=== PATIENT | female | born 1945 | race Hispanic/Latino ===

== ENCOUNTER 2017-03-06 22:13 | Emergency (ER) | payer OTHER ==
[~2017-03-06 22:13] MED LIST: ASCO500T9 PO; CRANBERRY PO; LISI1TAB9 PO; OMEP40CA37 PO; PRAV20TA4 PO; RENA VITE PO; TEMA30CA PO; TIZA2CAP9 PO; TRAM50TA4 PO; VITAMIN D PO; atenolol PO; oxybutynin PO
[2017-03-06 22:42] LABS: BASOPHILS % (AUTO) 0.5 % (0.0-5.0); EOSINOPHILS % (AUTO) 4.5 % (0.0-8.0); HEMATOCRIT 40.8 % (36-48); MEAN CORPUSCULAR HGB CONC 34.5 g/dL (32.0-36.0); MEAN CORPUSCULAR VOLUME 86.8 fL (79-99); MONOCYTES % (AUTO) 8.3 % (3.0-13.0); NEUTROPHILS % (AUTO) 54.7 % (40.0-77.0); PLATELET COUNT (AUTO) 200 K/uL (130-400); RED CELL DISTRIBUTION WIDTH 13.3 % (11.0-15.5); WHITE BLOOD COUNT (AUTO) 8.2 K/uL (4.8-10.8)
[2017-03-06 22:56] LABS: CREATININE 1.2 mg/dL (0.5-1.5); POTASSIUM 3.6 mmol/L (3.5-5.1)
[2017-03-06 23:00] LABS: ALBUMIN 3.5 g/dL (3.5-5.0); BILIRUBIN,DIRECT 0.1 mg/dL (0.0-0.3); BILIRUBIN,TOTAL 0.3 mg/dL (0.2-1.0); TOTAL PROTEIN, SERUM 7.1 g/dL (6.0-8.3)
[2017-03-06 23:06] LABS: B-TYPE NATRIURETIC PEPTIDE 94 pg/mL (0-100)
[2017-03-06] MEDS ORDERED: ONDANSETRON HCL 4 MG/2 ML VIAL ONE (23:38)
[2017-03-06] MEDS ORDERED: SODIUM CHLORIDE 0.9% 500ML 500 ML IV ONE (23:38)
[2017-03-06] MEDS ORDERED: MECLIZINE HCL 25 MG TABLET ONE (23:38)
== END 2017-03-07 00:57 | disposition home or self-care (01) ==
LOC: EDH 22:13
DX: R42 Dizziness and giddiness (principal); R53.1 Weakness; E78.5 Hyperlipidemia, unspecified; I10 Essential (primary) hypertension; M19.90 Unspecified osteoarthritis, unspecified site; I25.10 Atherosclerotic heart disease of native coronary artery without angina pectoris; Z88.6 Allergy status to analgesic agent
CPT/HCPCS: 36415; 70450; 80048; 80076; 82550; 83880; 84484; 85025; 93005; 96374; 99285; J2405; J7040

== ENCOUNTER → 2017-03-19 | Outpatient (CLI) | payer OTHER ==
[~2017-03-19] MED LIST changes: +ATEN25TA PO; +COMB5OS OU; +DOXY100C2 PO; +NITR100C PO; +REGADENOSON 0.4 MG/5 ML PF SYG IVP SCH
== END | disposition home or self-care (01) ==
LOC: SHCH 09:13
PROVIDERS: ATTEND Internal Medicine Cardiovascular Disease
DX: I25.119 Atherosclerotic heart disease of native coronary artery with unspecified angina pectoris (principal)
CPT/HCPCS: 78452; 93017; 96374; A9500 ×2; J2785

== ENCOUNTER 2017-06-17 10:15 | Emergency (ER) | payer OTHER ==
[~2017-06-17 10:15] MED LIST changes: -ATEN25TA PO; -COMB5OS OU; -DOXY100C2 PO; -NITR100C PO; -REGADENOSON 0.4 MG/5 ML PF SYG IVP SCH
[2017-06-17] MEDS ORDERED: SODIUM CHLORIDE 0.9% 1000ML 1,000 ML IV ONE (11:22)
[2017-06-17] MEDS ORDERED: ONDANSETRON HCL MDV 20ML 2 MG/ML VIAL ONE (11:22)
[2017-06-17] MEDS ORDERED: CEFTRIAXONE SODIUM 1 GM ONE (11:23)
[2017-06-17] MEDS ORDERED: KETOROLAC TROMETHAMINE 30MG/ML ONE (11:23)
[2017-06-17 12:00] LABS: BASOPHILS % (AUTO) 0.2 % (0.0-5.0); EOSINOPHILS % (AUTO) 0.2 % (0.0-8.0); HEMATOCRIT 42.7 % (36-48); LYMPHOCYTES % (AUTO) 7.2 % (21.0-51.0); MEAN CORPUSCULAR HEMOGLOBIN 30.1 pg (27.0-33.0); MEAN CORPUSCULAR HGB CONC 34.1 g/dL (32.0-36.0); MEAN CORPUSCULAR VOLUME 88.2 fL (79-99); NEUTROPHILS % (AUTO) 85.4 % (40.0-77.0); PLATELET COUNT (AUTO) 172 K/uL (130-400); RED BLOOD CELL COUNT(AUTO) 4.84 MIL/uL (4.00-5.50); RED CELL DISTRIBUTION WIDTH 13.9 % (11.0-15.5); WHITE BLOOD COUNT (AUTO) 5.9 K/uL (4.8-10.8)
[2017-06-17 12:04] LABS: APPEARANCE,URINE Clear (CLEAR); BILIRUBIN,URINE Negative (NEGATIVE); COLOR,URINE Yellow (YELLOW); GLUCOSE, URINE (UA) Negative (NEGATIVE); KETONES,URINE Negative (NEGATIVE); LEUKOCYTE ESTERASE ,URINE Moderate (NEGATIVE); NITRATE,URINE Negative (NEGATIVE); OCCULT BLOOD,URINE Moderate (NEGATIVE); PROTEIN,URINE Trace (NEGATIVE)
[2017-06-17 12:14] LABS: BACTERIA,URINE Rare /HPF (None Seen); RBC,URINE 0-1 /HPF (0-1); SQUAMOUS EPITHELIAL CELL,UR Rare /HPF (0-2)
[2017-06-17 12:22] LABS: CREATININE 1.5 mg/dL (0.5-1.5); POTASSIUM 3.9 mmol/L (3.5-5.1)
[2017-06-17 12:24] LABS: ALBUMIN 2.9 g/dL (3.5-5.0); BILIRUBIN,TOTAL 0.5 mg/dL (0.2-1.0); TOTAL PROTEIN, SERUM 7.2 g/dL (6.0-8.3)
[2017-06-17] MEDS ORDERED: LEVOFLOXACIN 500 MG TABLET ONE (13:03)
== END 2017-06-17 13:14 | disposition home or self-care (01) ==
LOC: EDH 10:15
DX: N39.0 Urinary tract infection, site not specified (principal); I25.10 Atherosclerotic heart disease of native coronary artery without angina pectoris; E78.5 Hyperlipidemia, unspecified; I10 Essential (primary) hypertension; Z87.891 Personal history of nicotine dependence; Z88.6 Allergy status to analgesic agent
CPT/HCPCS: 36415; 80053; 81001; 85025; 87088; 96361; 96374; 96375; 99285; J0696; J1885; J7030

== ENCOUNTER 2017-06-19 09:16 | Observation (INO) | payer OTHER ==
[~2017-06-19] VITALS: Ht 172.7 cm; Wt 75.7 kg
[2017-06-19 10:13] LABS: BASOPHILS % (AUTO) 1.5 % (0.0-5.0); EOSINOPHILS % (AUTO) 1.2 % (0.0-8.0); HEMATOCRIT 42.7 % (36-48); LYMPHOCYTES % (AUTO) 21.6 % (21.0-51.0); MEAN CORPUSCULAR HEMOGLOBIN 29.8 pg (27.0-33.0); MEAN CORPUSCULAR HGB CONC 34.4 g/dL (32.0-36.0); MEAN CORPUSCULAR VOLUME 86.5 fL (79-99); NEUTROPHILS % (AUTO) 64.7 % (40.0-77.0); PLATELET COUNT (AUTO) 183 K/uL (130-400); RED BLOOD CELL COUNT(AUTO) 4.93 MIL/uL (4.00-5.50); RED CELL DISTRIBUTION WIDTH 13.5 % (11.0-15.5); WHITE BLOOD COUNT (AUTO) 5.5 K/uL (4.8-10.8)
[2017-06-19 10:22] LABS: CREATININE 1.5 mg/dL (0.5-1.5)
[2017-06-19 10:27] LABS: ALBUMIN 2.9 g/dL (3.5-5.0); BILIRUBIN,DIRECT 0.1 mg/dL (0.0-0.3); BILIRUBIN,TOTAL 0.2 mg/dL (0.2-1.0); TOTAL PROTEIN, SERUM 7.3 g/dL (6.0-8.3)
[2017-06-19 11:12] LABS: APPEARANCE,URINE Clear (CLEAR); BILIRUBIN,URINE Negative (NEGATIVE); COLOR,URINE Yellow (YELLOW); GLUCOSE, URINE (UA) Negative (NEGATIVE); KETONES,URINE Negative (NEGATIVE); LEUKOCYTE ESTERASE ,URINE Small (NEGATIVE); NITRATE,URINE Negative (NEGATIVE); OCCULT BLOOD,URINE Small (NEGATIVE); PH,URINE 6.5 (5.0-8.0); PROTEIN,URINE Negative (NEGATIVE); UROBILINOGEN,URINE 0.2 mg/dL (0.2-1.0)
[2017-06-19 11:50] LABS: BACTERIA,URINE Few /HPF (None Seen); SQUAMOUS EPITHELIAL CELL,UR 0-2 /HPF (0-2)
[2017-06-19] MEDS ORDERED: MAG HYDROX/AL HYDROX/SIMETH ES 30 ML SUSP UDCUP PO PRN (12:45)
[2017-06-19] MEDS ORDERED: MORPHINE SULFATE 2 MG/ML 1ML SYG IV PRN (12:45)
[2017-06-19] MEDS ORDERED: NITROGLYCERIN 0.4 MG SL TAB SL PRN (12:45)
[2017-06-19] MEDS ORDERED: GUAIFENESIN-DM 200/20 MG 10 ML PO PRN (12:45)
[2017-06-19] MEDS ORDERED: ONDANSETRON HCL MDV 20ML 2 MG/ML VIAL IV PRN (12:45)
[2017-06-19] MEDS ORDERED: HYDRALAZINE HCL 20 MG/ML VIAL IV PRN (12:45)
[2017-06-19] MEDS ORDERED: ACETAMINOPHEN 325 MG TAB PO PRN ×2 (12:45)
[2017-06-19] MEDS ORDERED: LACTULOSE 20 GM/30 ML UDCUP PO PRN (12:45)
[2017-06-19] MEDS ORDERED: DOXYCYCLINE 100MG+NS 250ML 250 ML IV ONE (12:52)
[2017-06-19] MEDS ORDERED: ONDANSETRON HCL MDV 20ML 2 MG/ML VIAL ONE (13:10)
[2017-06-19] MEDS ORDERED: MORPHINE SULFATE 4 MG/1ML SYG ONE (13:11)
[2017-06-19 14:00] VITALS: BP 124/62
[2017-06-19] MEDS: DOXYCYCLINE 100MG+NS 250ML 250 ML IV SCH (14:00)
[2017-06-19] MEDS ORDERED: POTASSIUM CHLORIDE 20 MEQ ERTAB PO PRN ×2 (14:30)
[2017-06-19] MEDS ORDERED: LIDOCAINE HCL-MPF 1% 2ML VIAL IVP PRN ×2 (14:30)
[2017-06-19] MEDS ORDERED: POTASSIUM CHLORIDE 20MEQ/100ML 100 ML IV PRN ×2 (14:30)
[2017-06-19] MEDS ORDERED: POTASSIUM CHLORIDE 10% ELIXIR 20 MEQ/15 ML UDCUP PO PRN ×2 (14:30)
[2017-06-19] MEDS ORDERED: TEMA30CA PO (15:30)
[2017-06-19] MEDS ORDERED: TRAM50TA4 PO (15:30)
[2017-06-19] MEDS ORDERED: PRAV20TA4 PO (15:30)
[2017-06-19] MEDS ORDERED: TIZA2CAP9 PO (15:30)
[2017-06-19] MEDS ORDERED: LISI1TAB9 PO (15:30)
[2017-06-19] MEDS ORDERED: ATEN25TA PO (15:30)
[2017-06-19 16:00] VITALS: BP 135/76
[2017-06-19] MEDS: LEVOFLOXACIN 500 MG TABLET PO SCH (16:44)
[2017-06-19] MEDS: MORPHINE SULFATE 4 MG/1ML SYG IV PRN ×2 (16:52→21:34)
[2017-06-19] MEDS: SODIUM CHLORIDE 0.9% 1000ML 1,000 ML IV SCH (18:41)
[2017-06-19 19:45] VITALS: BP 146/65
[2017-06-19 23:37] VITALS: BP 140/68
[2017-06-20] MEDS: SODIUM CHLORIDE 0.9% 1000ML 1,000 ML IV SCH (01:58)
[2017-06-20 03:47] LABS: HEMATOCRIT 36.3 % (36-48); MEAN CORPUSCULAR HEMOGLOBIN 30.8 pg (27.0-33.0); MEAN CORPUSCULAR HGB CONC 35.3 g/dL (32.0-36.0); MEAN CORPUSCULAR VOLUME 87.3 fL (79-99); PLATELET COUNT (AUTO) 179 K/uL (130-400); RED BLOOD CELL COUNT(AUTO) 4.16 MIL/uL (4.00-5.50); RED CELL DISTRIBUTION WIDTH 13.6 % (11.0-15.5); WHITE BLOOD COUNT (AUTO) 6.7 K/uL (4.8-10.8)
[2017-06-20] MEDS ORDERED: DOXYCYCLINE 100MG+NS 250ML 250 ML IV ONE (03:53)
[2017-06-20 04:00] VITALS: BP 122/56
[2017-06-20] MEDS: DOXYCYCLINE 100MG+NS 250ML 250 ML IV SCH ×2 (04:01→14:14)
[2017-06-20 04:02] LABS: CREATININE 1.4 mg/dL (0.5-1.5); POTASSIUM 3.8 mmol/L (3.5-5.1)
[2017-06-20 04:25] LABS: BAND NEUTROPHILS % (MANUAL) 1 % (0-2); BASOPHILS % (MANUAL) 1 % (0-2); EOSINOPHILS % (MANUAL) 3 % (1-6); LYMPHOCYTES % (MANUAL) 23 % (22-44); MAN.DIFF COMMENT-IMPRESSION MANUAL DIFFERENTIAL; MONOCYTES % (MANUAL) 9 % (2-9); REACTIVE LYMPHOCYTES 2 % (0-0); SEGMENTED NEUTROPHILS % 61 % (40-70)
[2017-06-20 04:26] LABS: PLATELET MORPHOLOGY COMMENT ADEQUATE
[2017-06-20 08:00] VITALS: BP 136/64
[2017-06-20] MEDS ORDERED: ENOXAPARIN SODIUM 40 MG/0.4 ML SYRINGE SQ SCH (09:00)
[2017-06-20] MEDS ORDERED: DOXY100C2 PO (09:57)
[2017-06-20] MEDS: TRAMADOL HCL 50 MG TABLET PO PRN ×2 (10:02→14:14)
[2017-06-20 11:00] VITALS: BP 133/60
[2017-06-20] MEDS: LEVOFLOXACIN 500 MG TABLET PO SCH (14:39)
[2017-06-20 16:00] VITALS: BP 145/67
[2017-06-20 19:20] VITALS: BP 151/64
[2017-06-23 15:25] LABS: TYPHUS FEVER AB IGG <1:64 (Neg:<1:64)
== END 2017-06-20 20:00 | disposition home or self-care (01) ==
LOC: EDH 09:16 → EDHIP 12:43 → 3AH 14:20
PROVIDERS: ADMIT Internal Medicine; ATTEND Internal Medicine
DX: N39.0 Urinary tract infection, site not specified (principal); I25.10 Atherosclerotic heart disease of native coronary artery without angina pectoris; M19.90 Unspecified osteoarthritis, unspecified site; I10 Essential (primary) hypertension; E78.5 Hyperlipidemia, unspecified; E86.0 Dehydration; G89.29 Other chronic pain; H40.9 Unspecified glaucoma
CPT/HCPCS: 36415 ×2; 80048 ×2; 80076; 81001; 85025 ×2; 86757; 87040 ×2; 87804 ×2; 93005; 96361 ×2; 96374; 96375; 96376; 99285; G0378 ×31; J1650; J2270 ×3; J3490 ×3; J7030

== ENCOUNTER 2017-06-27 15:23 | Observation (INO) | payer OTHER ==
[~2017-06-27] VITALS: Ht 175.3 cm; Wt 72.6 kg
[~2017-06-27 15:23] MED LIST changes: +ATEN25TA PO; -CRANBERRY PO; +DOXY100C2 PO; -RENA VITE PO; -atenolol PO
[2017-06-27 15:48] LABS: APPEARANCE,URINE Cloudy (CLEAR); BILIRUBIN,URINE Negative (NEGATIVE); COLOR,URINE Red (YELLOW); GLUCOSE, URINE (UA) Negative (NEGATIVE); KETONES,URINE Negative (NEGATIVE); LEUKOCYTE ESTERASE ,URINE Large (NEGATIVE); NITRATE,URINE Negative (NEGATIVE); OCCULT BLOOD,URINE Large (NEGATIVE); PROTEIN,URINE 300 (NEGATIVE); UROBILINOGEN,URINE 0.2 mg/dL (0.2-1.0)
[2017-06-27 15:57] LABS: BACTERIA,URINE Rare /HPF (None Seen); RBC,URINE >100 /HPF (0-1); SQUAMOUS EPITHELIAL CELL,UR 0-2 /HPF (0-2); WBC,URINE 26-50 /HPF (0-1)
[2017-06-27] MEDS ORDERED: VANCOMYCIN 1GM+NS 250ML 250 ML IV SCH (16:45)
[2017-06-27 17:00] LABS: BASOPHILS % (AUTO) 0.7 % (0.0-5.0); EOSINOPHILS % (AUTO) 1.3 % (0.0-8.0); HEMATOCRIT 42.2 % (36-48); LYMPHOCYTES % (AUTO) 20.6 % (21.0-51.0); MEAN CORPUSCULAR HEMOGLOBIN 29.5 pg (27.0-33.0); MEAN CORPUSCULAR VOLUME 86.8 fL (79-99); MONOCYTES % (AUTO) 7.7 % (3.0-13.0); NEUTROPHILS % (AUTO) 69.7 % (40.0-77.0); NUCLEATED RED BLOOD CELLS 0.1 % (0.0-0.19); PLATELET COUNT (AUTO) 319 K/uL (130-400); RED BLOOD CELL COUNT(AUTO) 4.86 MIL/uL (4.00-5.50); RED CELL DISTRIBUTION WIDTH 13.7 % (11.0-15.5); WHITE BLOOD COUNT (AUTO) 13.3 K/uL (4.8-10.8)
[2017-06-27] MEDS ORDERED: SODIUM CHLORIDE 0.9% 1000ML 1,000 ML IV ONE (17:22)
[2017-06-27] MEDS ORDERED: MEPERIDINE-PF 25 MG/ML SYG ONE (17:23)
[2017-06-27] MEDS ORDERED: ONDANSETRON HCL 4 MG/2 ML VIAL ONE (17:24)
[2017-06-27] MEDS ORDERED: VANCOMYCIN 1GM+NS 250ML 250 ML IV ONE (17:46)
[2017-06-27 19:09] VITALS: BP 136/88
[2017-06-27] MEDS ORDERED: ONDANSETRON HCL 4 MG/2 ML VIAL IVP PRN (19:30)
[2017-06-27] MEDS ORDERED: ACETAMINOPHEN 325 MG TAB PO PRN (19:30)
[2017-06-27 19:46] LABS: CREATININE 1.2 mg/dL (0.5-1.5); POTASSIUM 3.4 mmol/L (3.5-5.1)
[2017-06-27] MEDS ORDERED: COMB5OS OU (19:47)
[2017-06-27] MEDS: SODIUM CHLORIDE 0.9% 1000ML 1,000 ML IV SCH (19:51)
[2017-06-27] MEDS: MEROPENEM 500 MG VIAL IVP SCH (20:23)
[2017-06-27] MEDS ORDERED: KETOROLAC TROMETHAMINE 15MG/ML IM SCH (22:00)
[2017-06-27] MEDS ORDERED: KETOROLAC TROMETHAMINE 15MG/ML ONE (22:04)
[2017-06-27] MEDS: KETOROLAC TROMETHAMINE 15MG/ML IV SCH (22:15)
[2017-06-27 23:06] VITALS: BP 119/50
[2017-06-28 03:19] VITALS: BP 133/63
[2017-06-28] MEDS: MEROPENEM 500 MG VIAL IVP SCH ×3 (03:50→20:19)
[2017-06-28 04:38] LABS: HEMATOCRIT 38.5 % (36-48); MEAN CORPUSCULAR HEMOGLOBIN 29.5 pg (27.0-33.0); MEAN CORPUSCULAR HGB CONC 33.8 g/dL (32.0-36.0); MEAN CORPUSCULAR VOLUME 87.2 fL (79-99); PLATELET COUNT (AUTO) 267 K/uL (130-400); RED BLOOD CELL COUNT(AUTO) 4.41 MIL/uL (4.00-5.50); RED CELL DISTRIBUTION WIDTH 13.9 % (11.0-15.5); WHITE BLOOD COUNT (AUTO) 10.1 K/uL (4.8-10.8)
[2017-06-28 04:54] LABS: CREATININE 1.4 mg/dL (0.5-1.5); POTASSIUM 3.7 mmol/L (3.5-5.1)
[2017-06-28] MEDS: TRAMADOL HCL 50 MG TABLET PO PRN ×2 (06:49→16:54)
[2017-06-28 08:00] VITALS: BP 141/72
[2017-06-28] MEDS: DOXYCYCLINE HYCLATE 100 MG TABLET PO SCH ×2 (08:12→20:10)
[2017-06-28] MEDS: FAMOTIDINE 20MG TAB 20 MG TAB PO SCH ×2 (08:12→20:10)
[2017-06-28] MEDS: SODIUM CHLORIDE 0.9% 1000ML 1,000 ML IV SCH (08:13)
[2017-06-28] MEDS: TIMOLOL MALEATE 0.5% 5 ML BOTTLE OU SCH ×2 (08:22→21:05)
[2017-06-28] MEDS: BRIMONIDINE TARTRATE 0.2% 5 ML BOTTLE OU SCH ×2 (08:22→21:05)
[2017-06-28] MEDS ORDERED: FAMOTIDINE 20MG TAB 20 MG TAB PO SCH (09:00)
[2017-06-28] MEDS ORDERED: OXYBUTYNIN CHLORIDE 5 MG TABLET PO PRN (09:00)
[2017-06-28 12:00] VITALS: BP 114/67
[2017-06-28] MEDS ORDERED: SODIUM CHLORIDE 30 ML DROPS NS PRN (15:30)
[2017-06-28 16:00] VITALS: BP 150/72
[2017-06-28 20:00] VITALS: BP 151/69
[2017-06-28] MEDS: ATENOLOL 25 MG TABLET PO SCH (20:09)
[2017-06-28] MEDS: HYDROCHLOROTHIAZIDE 25 MG TABLET PO SCH (20:09)
[2017-06-28] MEDS: LISINOPRIL 10 MG TABLET PO SCH (20:10)
[2017-06-28] MEDS: ASCORBIC ACID 500 MG TAB PO SCH (20:10)
[2017-06-28] MEDS: TEMAZEPAM 30 MG CAP PO SCH (20:20)
[2017-06-28] MEDS: PRAVASTATIN 20 MG PO SCH (21:00)
[2017-06-28] MEDS: TIZANIDINE HCL 2 MG TABLET PO SCH (21:05)
[2017-06-28] MEDS: KETOROLAC TROMETHAMINE 15MG/ML IV SCH (21:50)
[2017-06-28 23:55] VITALS: BP 116/54
[2017-06-29] MEDS: MEROPENEM 500 MG VIAL IVP SCH ×3 (03:43→19:56)
[2017-06-29 04:00] VITALS: BP 135/69
[2017-06-29 07:37] VITALS: BP 129/72
[2017-06-29] MEDS: DOXYCYCLINE HYCLATE 100 MG TABLET PO SCH ×2 (09:00→19:53)
[2017-06-29] MEDS: TIMOLOL MALEATE 0.5% 5 ML BOTTLE OU SCH ×2 (09:43→19:58)
[2017-06-29] MEDS: BRIMONIDINE TARTRATE 0.2% 5 ML BOTTLE OU SCH ×2 (09:51→19:58)
[2017-06-29] MEDS: FAMOTIDINE 20MG TAB 20 MG TAB PO SCH ×2 (09:54→19:52)
[2017-06-29] MEDS: TRAMADOL HCL 50 MG TABLET PO PRN ×2 (09:58→18:57)
[2017-06-29 11:20] VITALS: BP 145/82
[2017-06-29 16:03] VITALS: BP 133/65
[2017-06-29 19:05] VITALS: BP 157/74
[2017-06-29] MEDS: ATENOLOL 25 MG TABLET PO SCH (19:52)
[2017-06-29] MEDS: ASCORBIC ACID 500 MG TAB PO SCH (19:52)
[2017-06-29] MEDS: HYDROCHLOROTHIAZIDE 25 MG TABLET PO SCH (19:52)
[2017-06-29] MEDS: LISINOPRIL 10 MG TABLET PO SCH (19:52)
[2017-06-29] MEDS: TIZANIDINE HCL 2 MG TABLET PO SCH (19:53)
[2017-06-29] MEDS: PRAVASTATIN 20 MG PO SCH (21:00)
[2017-06-29] MEDS: KETOROLAC TROMETHAMINE 15MG/ML IV SCH (22:15)
[2017-06-29] MEDS: TEMAZEPAM 30 MG CAP PO SCH (22:29)
[2017-06-29 23:10] VITALS: BP 127/72
[2017-06-30 03:40] VITALS: BP 105/59
[2017-06-30] MEDS: MEROPENEM 500 MG VIAL IVP SCH ×2 (04:07→12:05)
[2017-06-30 08:01] VITALS: BP 130/65
[2017-06-30] MEDS: TIMOLOL MALEATE 0.5% 5 ML BOTTLE OU SCH (08:58)
[2017-06-30] MEDS: FAMOTIDINE 20MG TAB 20 MG TAB PO SCH (08:58)
[2017-06-30] MEDS: DOXYCYCLINE HYCLATE 100 MG TABLET PO SCH (08:58)
[2017-06-30] MEDS: BRIMONIDINE TARTRATE 0.2% 5 ML BOTTLE OU SCH (08:59)
[2017-06-30] MEDS ORDERED: NITR100C PO (10:05)
[2017-06-30 11:37] VITALS: BP 114/60
== END 2017-06-30 12:41 | disposition home or self-care (01) ==
LOC: EDH 15:23 → EDHIP 16:46 → INTOOBSV 16:46 → OBSVTOIN 16:46 → 4BH 18:29
PROVIDERS: ADMIT Internal Medicine; ATTEND Internal Medicine
DX: N39.0 Urinary tract infection, site not specified (principal); A79.9 Rickettsiosis, unspecified; I10 Essential (primary) hypertension; R33.9 Retention of urine, unspecified; M19.90 Unspecified osteoarthritis, unspecified site; E78.5 Hyperlipidemia, unspecified; H40.9 Unspecified glaucoma; I25.10 Atherosclerotic heart disease of native coronary artery without angina pectoris; M47.9 Spondylosis, unspecified; Z88.5 Allergy status to narcotic agent; Z87.440 Personal history of urinary (tract) infections; Z82.61 Family history of arthritis
CPT/HCPCS: 36415 ×2; 80048 ×2; 81001; 85025; 85027; 87088; 96365; 96375 ×2; 96376 ×3; 99285; A4218 ×7; A4510; G0378 ×68; J1885; J2175; J2185 ×9; J2405 ×2; J3370; J7030

== ENCOUNTER → 2017-08-24 | Outpatient (CLI) | payer OTHER ==
[~2017-08-24] MED LIST changes: +COMB5OS OU; +NITR100C PO
== END | disposition home or self-care (01) ==
LOC: OIH 15:23
PROVIDERS: ATTEND Pain Medicine Interventional Pain Medicine
DX: M47.892 Other spondylosis, cervical region (principal); M25.78 Osteophyte, vertebrae; M48.02 Spinal stenosis, cervical region
CPT/HCPCS: 72040

== ENCOUNTER 2017-11-22 19:09 | Emergency (ER) | payer OTHER ==
[2017-11-22] MEDS ORDERED: FAMOTIDINE/PF 20 MG/2 ML VIAL IV ONE (19:40)
[2017-11-22] MEDS ORDERED: SUCRALFATE 1 GM TABLET ONE (19:40)
[2017-11-22] MEDS ORDERED: ONDANSETRON HCL 4 MG/2 ML VIAL ONE (19:48)
[2017-11-22 19:53] LABS: BASOPHILS % (AUTO) 0.2 % (0.0-5.0); EOSINOPHILS % (AUTO) 0.1 % (0.0-8.0); HEMATOCRIT 49.1 % (36-48); MEAN CORPUSCULAR HEMOGLOBIN 29.2 pg (27.0-33.0); MEAN CORPUSCULAR HGB CONC 32.8 g/dL (32.0-36.0); MEAN CORPUSCULAR VOLUME 89.1 fL (79-99); MONOCYTES % (AUTO) 6.3 % (3.0-13.0); NEUTROPHILS % (AUTO) 74.4 % (40.0-77.0); NUCLEATED RED BLOOD CELLS 0.1 % (0.0-0.19); PLATELET COUNT (AUTO) 245 K/uL (130-400); RED BLOOD CELL COUNT(AUTO) 5.51 MIL/uL (4.00-5.50); RED CELL DISTRIBUTION WIDTH 13.4 % (11.0-15.5); WHITE BLOOD COUNT (AUTO) 14.8 K/uL (4.8-10.8)
[2017-11-22 20:02] LABS: CREATININE 1.4 mg/dL (0.5-1.5); POTASSIUM 3.6 mmol/L (3.5-5.1)
[2017-11-22 20:05] LABS: INR 1.04 (0.85-1.15); PARTIAL THROMBOPLASTIN TIME 25.5 SEC (26.3-35.5); PROTHROMBIN TIME 10.9 SEC (9.6-11.6)
[2017-11-22] MEDS ORDERED: ACETAMINOPHEN EXTRA STRENGTH 500 MG TABLET ONE (20:07)
[2017-11-22 20:12] LABS: BILIRUBIN,TOTAL 0.4 mg/dL (0.2-1.0); TOTAL PROTEIN, SERUM 8.3 g/dL (6.0-8.3)
[2017-11-22 22:58] LABS: APPEARANCE,URINE Clear (CLEAR); BILIRUBIN,URINE Negative (NEGATIVE); COLOR,URINE Yellow (YELLOW); GLUCOSE, URINE (UA) Negative (NEGATIVE); KETONES,URINE Negative (NEGATIVE); LEUKOCYTE ESTERASE ,URINE Moderate (NEGATIVE); NITRATE,URINE Negative (NEGATIVE); OCCULT BLOOD,URINE Small (NEGATIVE); PH,URINE 6.5 (5.0-8.0); PROTEIN,URINE Negative (NEGATIVE); UROBILINOGEN,URINE 0.2 mg/dL (0.2-1.0)
[2017-11-22 23:14] LABS: BACTERIA,URINE Moderate /HPF (None Seen); RBC,URINE 0-1 /HPF (0-1); SQUAMOUS EPITHELIAL CELL,UR Few /HPF (0-2)
== END 2017-11-23 01:47 | disposition home or self-care (01) ==
LOC: EDH 19:09
DX: K57.90 Diverticulosis of intestine, part unspecified, without perforation or abscess without bleeding (principal); R82.71 Bacteriuria; N39.0 Urinary tract infection, site not specified; M19.90 Unspecified osteoarthritis, unspecified site; I25.10 Atherosclerotic heart disease of native coronary artery without angina pectoris; E78.5 Hyperlipidemia, unspecified; I10 Essential (primary) hypertension; H40.9 Unspecified glaucoma; Z88.6 Allergy status to analgesic agent
CPT/HCPCS: 36415; 71045; 74176; 80053; 81001; 82550; 83690; 83874; 84484 ×2; 85025; 85610; 85730; 87077; 87088; 87186; 93005 ×2; 94761; 96374; 96375; 99285; J2405; J3490

== ENCOUNTER 2018-05-14 21:16 | Emergency (ER) | payer OTHER ==
[2018-05-14] MEDS ORDERED: CEFTRIAXONE SODIUM 1 GM ONE (22:06)
[2018-05-14] MEDS ORDERED: ACETAMINOPHEN EXTRA STRENGTH 500 MG TABLET ONE (22:06)
[2018-05-14] MEDS ORDERED: LIDOCAINE HCL-MPF 1% 2ML VIAL ONE (22:06)
[2018-05-14 22:15] LABS: APPEARANCE,URINE Clear (CLEAR); BILIRUBIN,URINE Negative (NEGATIVE); COLOR,URINE Orange (YELLOW); GLUCOSE, URINE (UA) Negative (NEGATIVE); KETONES,URINE Negative (NEGATIVE); LEUKOCYTE ESTERASE ,URINE Large (NEGATIVE); NITRATE,URINE Positive (NEGATIVE); OCCULT BLOOD,URINE Large (NEGATIVE); PH,URINE 6.5 (5.0-8.0); PROTEIN,URINE 300 mg/dL (NEGATIVE)
[2018-05-14 22:37] LABS: RBC,URINE >100 /HPF (0-1); WBC,URINE 51-100 /HPF (0-1)
[2018-05-14 22:38] LABS: BACTERIA,URINE Rare /HPF (None Seen); SQUAMOUS EPITHELIAL CELL,UR None Seen /HPF (0-2)
[2018-05-14] MEDS ORDERED: NITROFURANTOIN MONOHYD/M-CRYST 100 MG CAPSULE PO ONE (22:53)
== END 2018-05-14 23:25 | disposition home or self-care (01) ==
LOC: EDH 21:16
DX: N39.0 Urinary tract infection, site not specified (principal); E78.5 Hyperlipidemia, unspecified; I10 Essential (primary) hypertension; M19.90 Unspecified osteoarthritis, unspecified site; I25.10 Atherosclerotic heart disease of native coronary artery without angina pectoris; Z88.6 Allergy status to analgesic agent; Z87.891 Personal history of nicotine dependence
CPT/HCPCS: 81001; 87088; 96372; 99283; J0696; J3490

== ENCOUNTER → 2018-12-02 | Outpatient (CLI) | payer OTHER ==
--- NOTE | 2018-11-18 13:04 | NUR ---
PT WAS A NO SHOW FOR THIS DATE OF SERVICE
[~2018-12-02] VITALS: Ht 175.3 cm; Wt 73.5 kg
[~2018-12-02] MED LIST changes: +LISI1TAB32 PO; -LISI1TAB9 PO; +OMEP40CA13 PO; -OMEP40CA37 PO; +REGADENOSON 0.4 MG/5 ML PF SYG IVP SCH
== END | disposition home or self-care (01) ==
LOC: SHCH 08:37
PROVIDERS: ATTEND Internal Medicine Cardiovascular Disease
DX: I25.110 Atherosclerotic heart disease of native coronary artery with unstable angina pectoris (principal)
CPT/HCPCS: 78452; 93017; 96374; A9500 ×2

== ENCOUNTER → 2021-05-22 | Outpatient (CLI) | payer OTHER ==
[~2021-05-22] MED LIST changes: +ALBUHFA IH; -ASCO500T9 PO; -DOXY100C2 PO; -LISI1TAB32 PO; +NITR0.4T50 SL; -NITR100C PO; -OMEP40CA13 PO; -REGADENOSON 0.4 MG/5 ML PF SYG IVP SCH; +TIMO1DRO5 OP; -TIZA2CAP9 PO; -VITAMIN D PO; -oxybutynin PO
== END | disposition home or self-care (01) ==
LOC: SHCH 10:14
PROVIDERS: ATTEND Internal Medicine Cardiovascular Disease
DX: R07.9 Chest pain, unspecified (principal); I10 Essential (primary) hypertension; E78.5 Hyperlipidemia, unspecified; I25.10 Atherosclerotic heart disease of native coronary artery without angina pectoris; Z95.1 Presence of aortocoronary bypass graft
CPT/HCPCS: 93306

== ENCOUNTER → 2021-05-24 | Outpatient (CLI) | payer OTHER ==
[~2021-05-24] VITALS: Ht 175.3 cm; Wt 77.1 kg
[~2021-05-24] MED LIST changes: +REGADENOSON 0.4 MG/5 ML PF SYG IVP SCH
== END | disposition home or self-care (01) ==
LOC: SHCH 08:39
PROVIDERS: ATTEND Internal Medicine Cardiovascular Disease
DX: R07.9 Chest pain, unspecified (principal); I25.10 Atherosclerotic heart disease of native coronary artery without angina pectoris
CPT/HCPCS: 78452; 93017; 96374; A9500 ×2; J2785

== ENCOUNTER → 2022-03-27 | Outpatient (CLI) | payer OTHER ==
[~2022-03-27] MED LIST changes: -REGADENOSON 0.4 MG/5 ML PF SYG IVP SCH
== END | disposition home or self-care (01) ==
LOC: RAH 14:34
PROVIDERS: ATTEND Family Medicine
DX: N85.00 Endometrial hyperplasia, unspecified (principal); N95.0 Postmenopausal bleeding
CPT/HCPCS: 76830

== ENCOUNTER → 2024-03-17 | Outpatient (CLI) | payer OTHER ==
[~2024-03-17] MED LIST changes: -TIMO1DRO5 OP; +TIMO1DRO9 OP
--- NOTE | 2024-03-18 08:02 | HMCSR ---
APPROVED REPORT EXAM: Two-dimensional and M-mode echocardiogram with Doppler and color Doppler. INDICATION ICD: R01.1 Cardiac murmur, unspecified 2D Dimensions RVDd3.0 cmLVEF(%)73.5 (>50%)LVED Vol(simp.)107.0 mL IVSd0.9 (0.7-1.1cm)FS(%)42 %LVES Vol(simp.)40.0 mL LVDd4.4 (3.8-5.6cm)Ao Root(2D)3.0 (2.0-3.7cm)LVEF(%, simp.)63 % PWd0.9 (0.7-1.1cm)LVOT diam1.8 (1.8-2.4cm)LA ESV INDEX (BP)34.94 mL/m2 LVDs2.6 (2.5-4.0cm)IVC diam2.1 cm Aortic Valve AoV Vmax1.4 m/Annabel Peak GR7.7 mmHgLVOT Vmax1.2 m/s AoV VTI0.3 mAo Mean GR4.1 mmHgLVOT VTI0.26 m SEBASTIAN (VMAX)2.0 cm2AVA (VTI) 2.0 cm2 Mitral Valve MV E Vmax62.8 cm/sDECEL Ebsr518 ms MV A Vmax54.8 cm/sP 1/2 T69 ms E/A ratio1.1MVA (PHT)3.2 cm2 TDI E/E' Kmknlq32.1E/E' Lateral6.8 Pulmonary Valve PV Vmax1.0 m/sPV VTI0.21 mPV Mean GR2 mmHg PV Peak GR3.7 mmHg Tricuspid Valve TR Vmax2.2 m/sRAP (EST) 8 dcSnEZAA53.6 mmHg TR Peak GR18.6 mmHg Left Ventricle The left ventricle structure and function is normal. There is normal LV segmental wall motion. There is normal left ventricular wall thickness. LVEF is 60-65%. Indeterminate diastolic dysfunction. Right Ventricle The right ventricle is normal size. The right ventricular systolic function is normal. Atria The left atrium is mildly dilated. The right atrium size is normal. Aortic Valve Aortic valve is trileaflet. Aortic valve leaflets are sclerotic but open well. No aortic regurgitatio n is present. There is no aortic valvular stenosis. Mitral Valve Mitral valve leaflets are mildly sclerotic but open well. Mitral regurgitation is trace. There is no mitral valve stenosis. Tricuspid Valve The tricuspid valve leaflets appear normal. There is trace tricuspid regurgitation. Pulmonic Valve The pulmonic valve leaflets are thin and pliable; valve motion is normal. There is trace pulmonic zabrina vular regurgitation. Great Vessels The aortic root is normal in size. IVC is dilated and collapses >50% with inspiration. Pericardium No pericardial effusion. Conclusion LVEF is 60-65%. There is normal LV segmental wall motion. The right ventricular systolic function is normal.
== END | disposition home or self-care (01) ==
LOC: SHCH 10:56
PROVIDERS: ATTEND Internal Medicine Cardiovascular Disease
DX: I08.0 Rheumatic disorders of both mitral and aortic valves (principal); R01.1 Cardiac murmur, unspecified
CPT/HCPCS: 93306

== ENCOUNTER → 2024-06-06 | Outpatient (CLI) | payer OTHER ==
--- NOTE | 2024-06-07 08:40 | HMCSR ---
APPROVED REPORT Indications HTN Renal Artery Doppler Origin (R) 115.4/36.9 cm/secOrigin (L) 110.7/33.8 cm/sec Proximal (R) 113.8/40.0 cm/secProximal (L) 121.5/44.6 cm/sec Mid (R) 110.7/40.0 cm/secMid (L) 135.4/36.9 cm/sec Distal (R) 97.4/24.8 cm/secDistal (L) 86.1/38.5 cm/sec Renal/Aorta Ratio (R) 1.12Renal Aorta Ratio (L) 1.31 Resistive Index (R) 0.57Resistive Index (L) 0.50 Segmental A. (R) 49.6/21.4 cm/secLt. Segmental A. (L) 39.3/19.7 cm/sec Renal Measurements Kidney Size (R) 9.5x4.6x5.0 cmKidney Size (L)10.1x4.5x4.5 cm Aortic Doppler VelocityWaveform Proximal Aorta 103.1 cm/sec Technologist Impression An attempt was made to evaluate the abdominal aorta, the right and left renal arteries and kidneys, u tilizing duplex ultrasonography and color flow doppler. Based on the renal/aortic ratio there is no evidence of significant stenosis in the bilateral renal arteries. Echogenic kidneys, LT. Renal hydronephrosis seen. Conclusion No evidence of renal artery stenosis noted bilaterally Conclusion No evidence of renal artery stenosis noted bilaterally
== END | disposition home or self-care (01) ==
LOC: SHCH 08:53
PROVIDERS: ATTEND Internal Medicine Cardiovascular Disease
DX: I10 Essential (primary) hypertension (principal)
CPT/HCPCS: 93975